=== PATIENT | male | born 1995 | race African-American/Black ===

== ENCOUNTER 2021-08-20 03:47 | Emergency (ER) | payer OTHER, SELFPAY ==
[2021-08-20 03:54] VITALS: BP 139/71; PULSE 108; RESP 18; TEMP 37.4; O2SAT 96; BMI 20.7
--- NOTE | 2021-08-20 04:08 | ED.GENADULT ---
HPI - General Adult General Chief complaint: General Medical Stated complaint: fever Time Seen by Provider: 08/20/21 04:08 Source: patient Mode of arrival: ambulatory Limitations: no limitations History of Present Illness HPI narrative: Patient been having headache body aches low-grade fever for last 24 hours no cough no running nose no other family member sick. Patient did not get any COVID vaccine, no nausea no vomiting Related Data Allergies Allergy/AdvReac Type Severity Reaction Status Date / Time No Known Allergies Allergy Unverified 06/12/20 16:42 [No Known Allergies*] Review of Systems Review of Systems: Yes all other systems are reviewed and are negative [facility] Social History Social History Advance Directives: No Advance Directives Information Provided: Yes Physical Exam Vital Signs: Vital Signs: Last Vital Signs Temp 99.4 F 08/20/21 03:54 Pulse 108 H 08/20/21 03:54 Resp 18 08/20/21 03:54 BP 139/71 08/20/21 03:54 Pulse Ox 96 08/20/21 03:54 Body Mass Index 20.7 Appearance: Alert. Oriented X3. No acute distress. ENT: Pharynx normal. Oral Mucosa moist Neck: Normal inspection. Neck supple. CVS: Normal heart rate and rhythm. Pulses normal. Respiratory: No respiratory distress. Equal air entry bilateral Skin: Skin warm and dry. Normal skin color. Normal skin turgor. Extremities: No lower extremity edema. No calf tenderness Neuro: Oriented X 3. Medical Decision Making MDM Narrative Medical decision making narrative: Patient COVID positive saturating 96% at room air no shortness of breath advised patient to follow-up with PCP social distancing Tylenol/Motrin for fever Lab Data Lab results reviewed: Yes I reviewed the patient's lab results. Labs: Lab Results 08/20/21 Range/Units 04:26 COVID-19 (ERMA) Positive A (Negative) COVID-19 Clin Com See Note Discharge Plan Discharge Clinical Impression: COVID-19 Patient Disposition: Home, Self-Care Instructions: COVID-19 (Coronavirus Disease 2019) (ED) Additional Instructions: Precautions as advised Social distancing advised report to the ER if any shortness of breath Tylenol/Motrin for fever and body aches
[2021-08-20 04:44] LABS: COVID-19 Test Positive (Negative)
== END 2021-08-20 05:09 | disposition home or self-care (01) ==
PROVIDERS: Emergency Provider Internal Medicine; PCP Physician Assistant
DX: U07.1 COVID-19 (principal); R50.9 Fever, unspecified; M79.10 Myalgia, unspecified site
CPT/HCPCS: 36415; 87635; 99283

== ENCOUNTER 2021-09-14 04:49 | Emergency (ER) | payer OTHER, SELFPAY ==
[2021-09-14 05:28] VITALS: BP 138/93; PULSE 91; RESP 18; TEMP 36.3; O2SAT 98; BMI 21.2
== END 2021-09-14 06:30 | disposition left against medical advice (07) ==
PROVIDERS: Emergency Provider Emergency Medicine
DX: R11.2 Nausea with vomiting, unspecified (principal)
CPT/HCPCS: 99281; 99282

== ENCOUNTER 2023-01-31 14:33 | Outpatient (REF) | payer OTHER, SELFPAY ==
[2023-01-31 16:39] LABS: CT PCR NOT DETECTED (Not Detect.); NG PCR NOT DETECTED (Not Detect.)
== END 2023-01-31 14:34 | disposition home or self-care (01) ==
LOC: HO.LNP 14:33
PROVIDERS: Visit Provider Physician Assistant
DX: Z20.2 Contact with and (suspected) exposure to infections with a predominantly sexual mode of transmission (principal)
CPT/HCPCS: 0353U

== ENCOUNTER 2023-10-21 15:03 | Outpatient (AMB) | payer OTHER, SELFPAY ==
[2023-10-21 15:06] VITALS: BP 112/64; PULSE 71; TEMP 36.4; O2SAT 96; BMI 20.4
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
== END 2023-10-21 16:02 | disposition home or self-care (01) ==
PROVIDERS: Visit Provider Physician Assistant
DX: S06.0XAA Concussion with loss of consciousness status unknown, initial encounter (principal); S13.4XXA Sprain of ligaments of cervical spine, initial encounter; V87.7XXA Person injured in collision between other specified motor vehicles (traffic), initial encounter; R51.9 Headache, unspecified; Z53.29 Procedure and treatment not carried out because of patient's decision for other reasons
CPT/HCPCS: 99213